=== PATIENT | male | born 1990 | race Two or more races ===

== ENCOUNTER 2024-10-10 18:26 | Emergency (ER) | payer MEDICAID, SELFPAY ==
[2024-10-10 19:33] VITALS: BP 137/83; PULSE 80; RESP 16; TEMP 36.7; O2SAT 100
--- NOTE | 2024-10-10 19:41 | XR_ITS ---
Examination: Testicular sonography complete TECHNIQUE: Short scale sonographic images stenoses, assessment arterial inflow and venous outflow Doppler spectrum analysis color flow analysis Date and time: October 10, [id number] hours INDICATIONS: Blood in the semen 1 year FINDINGS: Right testis is 4.3 cm epididymis 1.2 cm Arterial flow testicle. No testicular Mass. Minimal hydrocele Minimal varicocele Left testis is 4.6 cm epididymis 2.0 cm 19 mm left epididymal cyst Arterial flow to the testicle. No testicular mass IMPRESSION: No testicular torsion or testicular mass Benign left epididymal cyst 17 x 13 x 19 mm
--- NOTE | 2024-10-10 19:51 | PD.EDMALE ---
ED Male Genitalurinary RME/HPI General Chief complaint: General Adult/Misc Complain Stated complaint: BLOOD IN SEMEN Time Seen by Provider: 10/10/24 19:39 Arrival date/time: 10/10/24 18:26 33M with no significant PMH presents to ED with 1 year of intermittent (happened 3-4 times) of blood in semen. Some vague testicular/anal/rectal pain. Patient denies anal intercourse and penile discharge. Patient recently finished a course of doxy with no improvement. Patient is supposed to see a specialist, but they haven't called him yet. Limitations: no limitations Related Data Allergies Allergy/AdvReac Type Severity Reaction Status Date / Time Penicillins Allergy Verified 10/10/24 18:30 Review of Systems Review of Systems Systems Reviewed: All systems reviewed, normal except as documented Constitutional Constitutional: Reports system reviewed and no additional complaints, except as documented, Denies fever(s) and Denies headache(s) ENT Ears, Nose, Mouth, and Throat: Denies disequilibrium and Denies headache(s) Cardiovascular Cardiovascular: Reports system reviewed and no additional complaints, except as documented, Denies chest pain and Denies dyspnea Respiratory Respiratory: Reports system reviewed and no additional complaints, except as documented, Denies cough and Denies dyspnea Gastrointestinal Gastrointestinal: Reports system reviewed and no additional complaints, except as documented, Denies abdominal pain, Denies nausea and Denies vomiting Genitourinary Genitourinary: Reports as per HPI, Reports flank pain and Reports hematospermia Neurologic Neurologic: Reports system reviewed and no additional complaints, except as documented, Denies confusion, Denies disequilibrium and Denies headache(s) Psychiatric Psychiatric: Denies confusion Past Medical History Social History SMOKING STATUS: Never smoker ED Exam General Limitations: Present no limitations General appearance: Present alert and in no apparent distress Head Head exam: Present atraumatic Eye Eye exam: Present normal appearance, PERRL and EOMI ENT ENT exam: Present normal exam, normal oropharynx and mucous membranes moist Neck Neck exam: Present normal inspection, full ROM and trachea midline Chest Chest inspection: Present normal inspection and symmetric chest wall rise Respiratory Respiratory exam: Present normal lung sounds bilaterally Cardiovascular Cardiovascular exam: Present regular rate, normal rhythm and normal heart sounds Abdominal Exam Abdominal exam: Present soft and normal bowel sounds Extremities Exam Extremities exam: Present normal inspection and full ROM Back Exam Back exam: Present normal inspection and full ROM Neurological Exam Neurological exam: Present alert, oriented X3 and CN II-XII intact Psychiatric Psychiatric exam: Present normal affect and normal mood Skin Skin exam: Present warm, dry, intact and normal color Course Quality Measures none Orders Category Date Time Status US testicular Stat Exams 10/10/24 19:41 Completed Chlamydia/GC/TV - PCR Urgent Lab 10/10/24 22:37 Received HIV (1&2) Antibody Rapid Stat Lab 10/10/24 20:20 Completed PSA [Prostate Specific Antigen] Stat Lab 10/10/24 20:20 Completed Syphilis Stat Lab 10/10/24 20:20 Completed Urinalysis Stat Lab 10/10/24 22:37 Completed Urine Culture Stat Lab 10/10/24 22:37 Received Vital Signs Vital signs: Vital Signs Temperature 98.1 F 10/10/24 19:33 Pulse Rate 80 10/10/24 19:33 Respiratory Rate 16 10/10/24 19:33 Blood Pressure 137/83 H 10/10/24 19:33 Pulse Oximetry (%) 100 10/10/24 19:33 Oxygen Delivery Method Room Air 10/10/24 19:33 O2 at 100% on RA and WNLs Urogenital - Male MDM Narrative MDM Narrative:: 33M with no significant PMH presents to ED with 1 year of intermittent (happened 3-4 times) of blood in semen. Some vague testicular/anal/rectal pain. Patient denies anal intercourse and penile discharge. Patient recently finished a course of doxy with no improvement. Patient is supposed to see a specialist, but they haven't called him yet. Physical exam reveals well-appearing male. Patient is afebrile, calm, and alert. US unremarkable. HIV, syphillis, and PSA normal. GC and UC pending at time of DC. Patient data External records reviewed:: None Clinical information provided by:: patient Social determinants that could affect healthcare access:: none Patient has the following chronic illnesses:: none How is presenting disease/condition affected by chronic disease/condition?: no chronic disease Evaluation data The following diagnostics were reviewed and interpreted by me:: lab results and radiology exam(s) Lab and/or radiology exams considered but not ordered:: ordered Interpretation Summary: above Medications / Prescriptions Medications or Prescriptions considered but not ordered:: not ordered Medication administrations:: n/a Consultations Consultation(s) initiated? (list below): No Diagnosis Urogenital Male Differential Diagnosis: urinary tract infection, priapism, urethritis, epididymitis, genital herpes simplex, prostatitis, acute retention of urine, inguinal hernia and other (testicular/prostate cancer, STD, blood in semen) Most likely diagnosis given after review of the tests above:: blood in semen Admission Indicated Admission indicated?: not indicated Admission Request Was there a request for admission?: No Disposition Plan Disposition Plan: Discharge Discharge Attestation Discharge Attestation: The patient and all family members were given an opportunity to ask questions and understood the discharge instructions. Discharge instructions specifically effects, indications for sooner follow up or return to the emergency department, and the expected course of current diagnosis. Patient condition: Stable Discharge Plan Plan Patient Disposition: HOME (Self Care) Discharge Disposition comment: Stable Prescriptions/Referrals Referrals: Annabella Quezada NP [Primary Care Provider] - In 1 week Problem List Clinical Impression: Blood in semen Patient/Caregiver Discharge Instructions Additional Instructions: Please follow-up with PCP within 24-48 hours and return immediately if symptoms worsen. Follow-up with urologist. Check patient portal for GC and UC results. Print Language: [employer] Stand Alone Forms: Patient Portal Info Letter CARLENE/KARAN Supervising Physician BALTA Supervising Physician: Dr. Mcdonough
[2024-10-10 21:03] LABS: Prostate Specific Antigen 0.65 ng/mL (0-4.00)
[2024-10-10 22:52] LABS: Collection Type, Urine Clean Catch; Squamous Epithelial Cell,Urine 0 /hpf (0-5)
[2024-10-10 23:08] LABS: Bilirubin,Urine Negative (Negative); Blood,Urine Negative (Negative); Clarity,Urine Clear (Clear/Hazy); Color,Urine Lt-Yellow (Lt Yel-Yel); Glucose, Urine Negative (Negative); Ketones,Urine Negative (Negative); Leukocyte Esterase,Urine Negative (Negative); Nitrite,Urine Negative (Negative); PH,Urine 6.5 (5.0-7.0); Protein,Urine Negative (Neg - Trace); RBC,Urine 1 /hpf (0-3); Specific Gravity,Urine 1.021 (1.001-1.035); Urobilinogen,Urine Negative mg/dL (0.0-1.0); WBC,Urine 1 /hpf (0-5)
[2024-10-10 23:22] LABS: Syphilis Nonreactive (Nonreactive)
[2024-10-11 01:18] LABS: HIV (1&2) Antibody Rapid Non-Reactive
[2024-10-11 01:22] VITALS: BP 139/72; PULSE 70; RESP 16; TEMP 36.7; O2SAT 99
[2024-10-11 15:17] LABS: Chlamydia trachomatis PCR Negative (Not Detect); Neisseria Gonorrhoeae DNA PCR Negative (Not Detect); Trichomonas Negative (Negative)
== END 2024-10-11 01:41 | disposition home or self-care (01) ==
PROVIDERS: Physician Assistant; Emergency Provider Emergency Medicine; PCP Nurse Practitioner Family
DX: R36.1 Hematospermia (principal); K62.89 Other specified diseases of anus and rectum
CPT/HCPCS: 36415; 76870; 81001; 84153; 86703; 86780; 87086; 87491; 87591; 87661; 99284

== ENCOUNTER → 2025-04-26 | Outpatient (CLI) | payer MEDICAID, SELFPAY ==
[2025-04-26 13:04] LABS: Prostate Specific Antigen 0.49 ng/mL (0-4.00)
== END | disposition home or self-care (01) ==
LOC: COPL 09:03
PROVIDERS: Referring Provider Surgery; Visit Provider Surgery
DX: N40.1 Benign prostatic hyperplasia with lower urinary tract symptoms (principal)
CPT/HCPCS: 36415; 84153